=== PATIENT | female | born 2000 | race African-American/Black ===

== ENCOUNTER 2020-11-20 13:49 | Emergency (ER) | payer OTHER ==
[~2020-11-20] VITALS: Ht 167.6 cm; Wt 96.2 kg
[2020-11-20 14:02] VITALS: BP 117/67
--- NOTE | 2020-11-20 14:25 | NUR ---
NO PT IN ROOM. PT PURSE ON COUNTER.
[2020-11-20 15:24] LABS: MICROSCOPIC AUTO
== END 2020-11-20 16:02 | disposition home or self-care (01) ==
LOC: ED 15:35
DX: R30.0 Dysuria (principal)
CPT/HCPCS: 81001; 87086; 99283